=== PATIENT | female | born 1955 | race Caucasian/White ===

== ENCOUNTER 2023-06-17 15:48 | Emergency (ER) | payer OTHER, SELFPAY ==
[2023-06-17 15:58] VITALS: BP 122/81
[2023-06-17 16:13] LABS: % Basophils 0.9 % (0-2); % Eosinophils 2.4 % (0-6); % Immature Granulocytes 0.4 % (0-0.5); % Lymphocytes 30.8 % (20.5-51.1); % Monocytes 10.2 % (1.7-9.3); % Neutrophils 55.3 % (42.2-75.2); Absolute Basophils 0.1 10^3/uL (0-0.2); Absolute Eosinophils 0.1 10^3/uL (0-0.7); Absolute Lymphocytes 1.7 10^3/uL (1.2-3.4); Absolute Monocytes 0.6 10^3/uL (0.1-0.6); Hematocrit 38.6 % (37.0-47.0); Hemoglobin 13.2 g/dL (12.0-16.0); Mean Corp Hgb Conc. 34.2 g/dL (33.0-37.0); Mean Corpuscular Hgb 31.6 pg (27.0-31.0); Mean Corpuscular Volume 92.3 fL (81.0-99.0); Mean Platelet Volume 9.9 fL (7.4-10.4); Nucleated Red Blood Cells % 0 %; Platelet Count 223 10^3/uL (130-400); Red Blood Cell Count 4.18 10^6/uL (4.20-5.40); Red Cell Dist. Width 13.1 % (11.5-14.5); White Blood Cell Count 5.5 10^3/uL (4.8-10.8)
[2023-06-17 16:28] LABS: ALT (SGPT) 33 U/L (0-35); AST (SGOT) 38 U/L (14-36); Albumin 4.5 g/dl (3.5-5.0); Alkaline Phosphatase 61 U/L (38-126); Blood Urea Nitrogen 28 mg/dl (7-17); Calcium 9.7 mg/dl (8.4-10.2); Carbon Dioxide 27 mmol/L (22-30); Chloride 100 mmol/L (98-107); Glucose 97 mg/dl (70-99); Potassium 4.2 mmol/L (3.5-5.1); Sodium 136 mmol/L (135-145); Total Bilirubin 0.5 mg/dl (0.2-1.3); Total Protein 7.2 g/dl (6.3-8.2); eGFR > 60.00
[2023-06-17 17:07] LABS: NT-proBNP 56.1 pg/ml
--- NOTE | 2023-06-17 18:51 | ED.GENMED ---
History of Present Illness
General
Chief Complaint: Musculo-Skeletal Complaint
Source: patient
Time Seen by Provider: 06/17/23 17:35
Travel History
Have you had any contact with someone who has COVID-19?: No
Do you have any symptoms of coronavirus? Fever > 100 degrees, chills, cough, shortness of breath, sore throat, loss of taste or smell, muscle aches, or headache?: No
History of Present Illness
History of Present Illness:
68-year-old female with past medical history of migraines, anxiety and depression presenting to the emergency department for evaluation of right leg pain described to be a burning sensation, stiffness and swelling that has been ongoing for around 1
months, over the last week symptoms have been worsening. No new symptoms today however due to the continuation of the symptoms patient decided to come to the ER to be further evaluated. She did make an appointment with an orthopedist but this is
not until this coming Wednesday. Patient denies any falls or trauma to the affected area. She does note previous surgery to the affected right knee. She denies any fevers, chills, rigors, chest pain, shortness of breath, cough or any other
concerns.
Past History
Past History
ED Past Medical History: Psychiatric and Other (Migraines)
ED Past Surgical History: Orthopedic and Other (R knee reconstruction, bladder lift)
Social History
Tobacco: Non-smoker
Alcohol: None
Drug: None
Personal:
Living: with family
Family History
Family History: Other (non contributory)
Review of Systems
Review of Systems
All Other Systems: ROS reviewed and negative except as documented in HPI and ROS
Phy Exam
Physical Exam
Physical Exam:
GENERAL: Alert , in no apparent distress
EYE: conjunctiva clear
Head: Normocephalic atraumatic
NECK: Supple,
ENT: mmm.
LUNGS: no acute respiratory distress
NEUROLOGICAL: Alert and oriented
SKIN: Warm and dry, skin intact.
MUSCULOSKELETAL: Right leg from the knee distal is mildly more edematous compared to the left. It is also slightly dusky in appearance and there are varicose veins and spider veins throughout. Patient has an easily palpable pedal and tibial pulse
bilateral. Cap refills less than 2 seconds and sensation is grossly intact to light touch. Patient does have some tenderness over the anterior patella but no crepitus
PSYCH: Normal and appropriate interaction.
Scores
Heart Failure Risk
Heart Failure Risk Score: Not Applicable
Heart Score for Chest Pain Patients
STEMI patient?: Not applicable
Withdrawal Assessment of Alcohol
Withdrawal Assessment Completed?: Not applicable
Course
Orders/Labs/Results
Orders:
Orders
06/17/23 16:06
BNP [NT-proBNP] Urgent
CBC/With Diff [Complete Blood Count/With Diff] Urgent
CMP [Comprehensive Metabolic Panel] Urgent
06/17/23 17:41
US Periph Venous LOWER Ext RT Urgent
Comment:
Reason For Exam: pain,swelling
06/17/23 18:05
CR Knee- Right 4 Or More View* Urgent
Comment:
Reason For Exam: edema, pain
Abnormal Lab Results
06/17/23
16:06
RBC 4.18 L 10^6/uL
(4.20-5.40)
MCH 31.6 H pg
(27.0-31.0)
Monocytes % 10.2 H %
(1.7-9.3)
BUN 28 H mg/dl
(7-17)
AST 38 H U/L
(14-36)
06/17/23 16:06
06/17/23 16:06
Vital Signs
Initial and Last Documented VS:
Initial Vital Signs
Temp Pulse Resp BP Pulse Ox
98.1 F 68 15 122/81 99
06/17/23 15:58 06/17/23 15:58 06/17/23 15:58 06/17/23 15:58 06/17/23 15:58
Last Documented Vital Signs
Temp Pulse Resp BP Pulse Ox
98.1 F 68 15 122/81 99
06/17/23 15:58 06/17/23 15:58 06/17/23 15:58 06/17/23 15:58 06/17/23 15:58
MDM/Problems Addressed
Differential Diagnosis Includes:
Arthritic changes, DVT, no concern for arterial occlusion given duration of symptoms combined with lack of physical exam findings and intact pulses
MDM/Problems Addressed:
68-year-old female presenting the emergency department for 1 month of right lower extremity swelling, right knee pain and stiffness. She has an appointment scheduled with orthopedics next week but due to the continuation of symptoms decided to come
to the ER today. There is observable edema to the right lower extremity on exam and the skin does appear little bit more dusky. I do suspect there is a component of peripheral vascular disease. Will obtain lab work as well as an ultrasound of the
right lower extremity and an x-ray of the right knee.
*Radiology
Radiology exam reviewed: preliminary read by ED provider (Degenerative changes) and radiology read reviewed
*Pulse Oximetry
Patient hypoxic: no
*Critical Care Note
Total Time (30-74mins, 75-104mins- exclusive of procedures): Not Applicable
Patient Management
Escalation/DeEscalation of care consider admission/obs:
Patient's ultrasound is negative for DVT. Her knee x-ray did show some mild degenerative changes. She will follow-up with her orthopedist as scheduled as well as her primary care provider. Aware of return precautions but otherwise stable for
discharge home.
ED Attending Note
-
Portions of this chart may have been created with voice recognition software.� Occasional wrong word or��sound alike� substitutions may have occurred due to the inherent limitations of voice recognition software.
Discharge Plan
Departure
Patient Disposition: Home (Routine Discharge)
Date of Disposition: 06/17/23
Time of Disposition: 19:13
Patient with high blood pressure during this ER visit?: No
Discharge Problem:
Knee pain, right, Edema of right lower leg
Instructions: Swelling
Prescriptions:
No Action
bupropion HCl [Wellbutrin SR] 150 MG tablet sustained-release 12 hr
150 mg PO DAILY
multivitamin 1 EACH tablet
1 ea PO DAILY
Referrals:
Mac Wells MD [Family Provider] -
Interventions
Interventions:
*Risk Screen - Suicide Last Done: 06/17/23 15:58
*General Assessment Last Done: 06/17/23 15:58
*Neglect/Abuse Screening Last Done: 06/17/23 15:58
ED- Fall Risk Assessment Last Done: 06/17/23 19:38
*ED COVID-19 Vaccine History Last Done: 06/17/23 15:58
*Nursing Disposition Last Done: 06/17/23 19:38
ED-Musculoskeletal Assessment Last Done: 06/17/23 19:38
Discharge Date and Time
Discharge Date/Time: 06/17/23 19:39
Print Language: MACANESE
== END 2023-06-17 19:39 | disposition home or self-care (01) ==
LOC: EMR 15:48
PROVIDERS: EMERGENCY PHYSICIAN Emergency Medicine; FAMILY PHYSICIAN Internal Medicine
DX: M25.561 Pain in right knee (principal); R60.0 Localized edema; F32.A Depression, unspecified; F41.9 Anxiety disorder, unspecified
CPT/HCPCS: 99285; 73564; 80053; 83880; 85025; 93971

== ENCOUNTER 2023-07-25 20:27 | Emergency (ER) | payer OTHER, SELFPAY ==
[2023-07-25 20:27] VITALS: BMI 28.3
[2023-07-25 20:29] VITALS: BP 142/98
--- NOTE | 2023-07-25 21:16 | ED.GENMED ---
History of Present Illness
General
Chief Complaint: Dizziness
Source: patient and spouse
Exam Limitations: none
Time Seen by Provider: 07/25/23 20:41
Nursing documentation reviewed up to this point in time: agreed with
Travel History
Have you had any contact with someone who has COVID-19?: No
Do you have any symptoms of coronavirus? Fever > 100 degrees, chills, cough, shortness of breath, sore throat, loss of taste or smell, muscle aches, or headache?: No
History of Present Illness
History of Present Illness:
68-year-old female presents emergency room complaining of vertigo with a headache on the top of her head, nausea and vomiting. This is similar to her previous episode of vertigo she had, and was seen in this hospital.
Past History
Past History
ED Past Medical History: Psychiatric, Other (Migraines) and Other (vertigo)
ED Past Surgical History: Orthopedic and Other (R knee reconstruction, bladder lift)
Social History
Tobacco: Non-smoker
Alcohol: None
Drug: None
Personal:
Living: with family
Family History
Family History: Other (non contributory)
Review of Systems
Review of Systems
Allergies reviewed?: Yes
All Other Systems: Not applicable
Constitutional: Reports no symptoms
EENT: Reports no symptoms
Respiratory: Reports no symptoms
Cardiac: Reports no symptoms
ABD/GI: Reports nausea and vomiting
: Reports no symptoms
Musculoskeletal: Reports no symptoms
Skin: Reports no symptoms
Neurological: Reports dizzy
Endocrine: Reports no symptoms
Hematologic/Lymphatic: Reports no symptoms
Psychiatric: Reports no symptoms
Phy Exam
Physical Exam
Physical Exam:
Physical Exam
General: no apparent distress, not acutely ill
Neck: supple. no meningeal signs. normal posterior pharynx
Heart: s1/s2 regular rate and rhythm, no murmur. equal radial
pulses.
HEENT: Pupils equal round reactive to light, EOMI, horizontal nystagmus
Lungs: no acute respiratory distress. clear bilaterally
Abdomen: normal bowel sounds. not tender. no CVAT
Neuro: alert and oriented. no focal neurological deficits cranial nerves II through XII intact
Skin: no rash
Psychiatric: well kept. interactive and cooperative
Extremities: no edema. no calf tenderness. negative homans. good distal pulses
Course
Orders/Labs/Results
Orders:
Orders
07/25/23 21:12
Electrocardiogram (*1) Stat
Reason for Study: Vertigo / Dizzy
EKG- Treatment ONCE
IV Insert/Care/Rem.- Treatment PRN
Diphenhydramine [Benadryl] 25 mg IV NOW STA
Metoclopramide [Reglan] 10 mg IV NOW STA
07/25/23 21:15
Electrocardiogram (*1) Urgent
Reason for Study: Vertigo / Dizzy
07/25/23 21:32
Complete Blood Count/With Diff Urgent
Comprehensive Metabolic Panel Urgent
Abnormal Lab Results
07/25/23
21:32
MCH 31.5 H pg
(27.0-31.0)
07/25/23 21:32
07/25/23 21:32
Vital Signs
Initial and Last Documented VS:
Initial Vital Signs
Pulse Resp BP Pulse Ox
82 24 142/98 97
07/25/23 20:29 07/25/23 20:29 07/25/23 20:29 07/25/23 20:29
Last Documented Vital Signs
Pulse Resp BP Pulse Ox
82 24 142/98 97
07/25/23 20:29 07/25/23 20:29 07/25/23 20:29 07/25/23 20:29
MDM/Problems Addressed
Differential Diagnosis Includes:
CVA, migraine, vertigo
MDM/Problems Addressed:
68-year-old female with migraine and vertigo. Improved after IV Reglan and Benadryl. Stable for discharge.
Chronic conditions affecting care: Other (Migraine, vertigo)
Acute Exacerbation and/or Progression of Chronic Illness: Other (Migraine, vertigo)
*Pulse Oximetry
Patient hypoxic: no
*EKG
Interpreted by ED Provider?: Yes
EKG Intrepretation Date: 07/25/23
EKG Intrepretation Time: 22:08
Interpretation: abnormal
Comparison EKG: no changes
Heart Rate: 55
Rate: bradycardiac
Rhythm: sinus
[place]: normal axis
Interval: normal interval
QRS Pattern: normal QRS
Ischemia: no ischemia
*Type Soldering Machine Tender Interpretation
Rate: bradycardiac
Interpretation: normal
Heart Rate: 55
Rhythm: sinus
*Critical Care Note
Total Time (30-74mins, 75-104mins- exclusive of procedures): Not Applicable
Patient Management
Social determinants of health affecting care: Living situation
Escalation/DeEscalation of care consider admission/obs:
admit not indicated
ED Attending Note
-
Portions of this chart may have been created with voice recognition software.� Occasional wrong word or��sound alike� substitutions may have occurred due to the inherent limitations of voice recognition software.
Discharge Plan
Departure
Patient Disposition: Home (Routine Discharge)
Date of Disposition: 07/25/23
Time of Disposition: 23:57
Patient with high blood pressure during this ER visit?: Yes
Condition: Good
Discharge Problem:
Vertigo, Migraine
Instructions: Vertigo (a Type of Dizziness) (DC)
Prescriptions:
No Action
bupropion HCl [Wellbutrin SR] 150 MG tablet sustained-release 12 hr
150 mg PO DAILY
multivitamin 1 EACH tablet
1 ea PO DAILY
Referrals:
Mac Wells MD [Family Provider] - Call in 1-3 days for appt
Interventions
Interventions:
*Risk Screen - Suicide Last Done: 07/25/23 20:29
*Neglect/Abuse Screening Last Done: 07/25/23 20:29
ED- Fall Risk Assessment Last Done: 07/25/23 21:57
JR-Bdxcsh-Mglymgqqkt Assessment Last Done: 07/25/23 21:59
ED- Cardiac Assessment Last Done: 07/25/23 21:57
ED-EENT Assessment Last Done: 07/25/23 21:57
ED- Neurological Assessment Last Done: 07/25/23 21:57
ED Swallowing Screen Last Done: 07/25/23 22:46
Discharge Date and Time
Print Language: MALDIVIAN
[2023-07-25] MEDS: REGLAN 10 MG IV (21:26)
[2023-07-25] MEDS: BENADRYL 25 MG IV (21:26)
[2023-07-25 21:40] LABS: % Basophils 0.8 % (0-2); % Eosinophils 2.1 % (0-6); % Immature Granulocytes 0.2 % (0-0.5); % Lymphocytes 25.8 % (20.5-51.1); % Monocytes 8.4 % (1.7-9.3); % Neutrophils 62.7 % (42.2-75.2); Absolute Eosinophils 0.1 10^3/uL (0-0.7); Absolute Lymphocytes 1.4 10^3/uL (1.2-3.4); Absolute Monocytes 0.4 10^3/uL (0.1-0.6); Absolute Neutrophils 3.3 10^3/uL (1.4-6.5); Hematocrit 37.3 % (37.0-47.0); Hemoglobin 13.4 g/dL (12.0-16.0); Mean Corp Hgb Conc. 35.9 g/dL (33.0-37.0); Mean Corpuscular Hgb 31.5 pg (27.0-31.0); Mean Corpuscular Volume 87.6 fL (81.0-99.0); Nucleated Red Blood Cells % 0 %; Platelet Count 228 10^3/uL (130-400); Red Blood Cell Count 4.26 10^6/uL (4.20-5.40); Red Cell Dist. Width 12.8 % (11.5-14.5); White Blood Cell Count 5.2 10^3/uL (4.8-10.8)
[2023-07-25 21:55] LABS: ALT (SGPT) 17 U/L (0-35); AST (SGOT) 24 U/L (14-36); Albumin 3.9 g/dl (3.5-5.0); Alkaline Phosphatase 69 U/L (38-126); Blood Urea Nitrogen 17 mg/dl (7-17); Calcium 9.6 mg/dl (8.4-10.2); Carbon Dioxide 25 mmol/L (22-30); Chloride 107 mmol/L (98-107); Glucose 98 mg/dl (70-99); Potassium 3.7 mmol/L (3.5-5.1); Sodium 140 mmol/L (135-145); Total Bilirubin 0.5 mg/dl (0.2-1.3); Total Protein 6.3 g/dl (6.3-8.2); eGFR > 60.00
[2023-07-26 00:24] VITALS: BP 137/71
== END 2023-07-26 00:06 | disposition home or self-care (01) ==
LOC: EMR 20:27
PROVIDERS: EMERGENCY PHYSICIAN Emergency Medicine; FAMILY PHYSICIAN Internal Medicine
DX: G43.909 Migraine, unspecified, not intractable, without status migrainosus (principal); R42 Dizziness and giddiness; R03.0 Elevated blood-pressure reading, without diagnosis of hypertension; F41.9 Anxiety disorder, unspecified; F32.A Depression, unspecified
CPT/HCPCS: 99284; 96374; 96375; 80053; 85025; 93005

== ENCOUNTER → 2023-08-12 06:41 | Outpatient (REF) | payer OTHER, SELFPAY | LOC: HWWDC 06:41 | PROVIDERS: ATTENDING PHYSICIAN Obstetrics & Gynecology Gynecology; FAMILY PHYSICIAN Internal Medicine | DX: Z12.31 Encounter for screening mammogram for malignant neoplasm of breast (principal) | CPT/HCPCS: 77063; 77067 ==

== ENCOUNTER 2024-01-23 08:32 | Emergency (ER) | payer OTHER, SELFPAY ==
[2024-01-23 08:41] VITALS: BP 103/65
[2024-01-23 09:33] VITALS: BMI 28.2
--- NOTE | 2024-01-23 10:12 | ED.GENMED ---
History of Present Illness
General
Chief Complaint: Urinary Symptoms
Source: patient
Exam Limitations: none
Time Seen by Provider: 01/23/24 09:03
Nursing documentation reviewed up to this point in time: agreed with except (denies any bleeding from vagina, states the blood is from urethra)
History of Present Illness
History of Present Illness:
68 yo female with hx anxiety/depression, bladder lift, presents for painful urination, urine with small blood clots.
Last 8 p.m. had difficulty urinating due to pain.
1:30 a.m. similar episode
3:30 a.m. urinated w pain and noted small blood clots
Denies f/c/d/c. Denies abdominal pain
Past History
Past History
ED Past Medical History: Psychiatric, Other (Migraines) and Other (vertigo)
ED Past Surgical History: Orthopedic and Other (R knee reconstruction, bladder lift)
Social History
Tobacco: Non-smoker
Alcohol: None
Drug: None
Personal:
Living: with family
Family History
Family History: Other (non contributory)
Review of Systems
Review of Systems
Allergies reviewed?: Yes
All Other Systems: ROS reviewed and negative except as documented in HPI and ROS
Constitutional: Denies fever or chills
Respiratory: Denies trouble breathing
Cardiac: Denies chest pain
ABD/GI: Denies abdominal pain, nausea, vomiting, diarrhea, constipated or anorexia
: Reports dysuria, difficulty voiding and bleeding; Denies flank pain
Musculoskeletal: Reports no symptoms
Skin: Reports no symptoms
Neurological: Reports no symptoms
Phy Exam
Physical Exam
Physical Exam:
GENERAL: No acute distress. A&Ox3.
CONSTITUTIONAL: Afebrile.
EYES: clear, conjunctivae normal
ENMT: moist mucus membranes, Pharynx nl
RESPIRATORY: Regular respirations, nonlabored, lungs clear.
CARDIOVASCULAR: Regular rate and rhythm, no murmurs, no rubs.
GI: Soft, nontender, normal BS
MUSCULOSKELETAL: Moves with ease. Well perfused.
SKIN: Warm, dry, pink
PSYCH: Normal mood and affect. Well kept, interactive and appropriate
NEUROLOGIC: Awake, alert and oriented. No focal neurological deficits
Course
Orders/Labs/Results
Orders:
Orders
01/23/24 09:45
Urinalysis Reflex To Culture Urgent
Date Specimen was Collected: 01/23/24
Time Specimen was Collected: 08:53
Urine Microscopic Reflex Cult Urgent
Urine Culture Urgent
GREGORY Source: U
Specimen Description:
Date Specimen was Collected: 01/23/24
Time Specimen was Collected: 08:53
01/23/24 10:36
Basic Metabolic Panel Urgent
Complete Blood Count/With Diff Urgent
01/23/24 11:16
Phenazopyridine HCl [Pyridium] 100 mg PO NOW STA
Abnormal Lab Results
01/23/24 01/23/24
09:45 10:36
RBC 3.90 L 10^6/uL
(4.20-5.40)
Hct 35.8 L %
(37.0-47.0)
Absolute Monos (auto) 0.7 H 10^3/uL
(0.1-0.6)
Lymphocytes % 16.3 L %
(20.5-51.1)
Monocytes % 9.9 H %
(1.7-9.3)
Carbon Dioxide 31 H mmol/L
(22-30)
BUN 31 H mg/dl
(7-17)
Glucose 103 H mg/dl
(70-99)
Ur Occult Blood Reflex 4+ A
(Negative)
Urine Nitrite (Reflex) Positive A
(Negative)
Urine Urobilinogen 2+ A
(Neg - 1+)
Leukocyte Esterase Rfl 2+ A
(Negative)
Urine RBC >100 A /HPF
(0-2)
Urine WBC (Reflex) 21-25 A /HPF
(0-5)
Urine Bacteria (Reflex) Moderate A
(Negative)
Urine Albumin (Reflex) 2+ A
(Neg - Trace)
01/23/24 10:36
01/23/24 10:36
Vital Signs
Initial and Last Documented VS:
Initial Vital Signs
Temp Pulse Resp BP Pulse Ox
97.7 F 71 22 103/65 98
01/23/24 08:41 01/23/24 08:41 01/23/24 08:41 01/23/24 08:41 01/23/24 08:41
Last Documented Vital Signs
Temp Pulse Resp BP Pulse Ox
97.7 F 55 16 108/67 98
01/23/24 08:41 01/23/24 11:47 01/23/24 11:47 01/23/24 11:47 01/23/24 11:47
MDM/Problems Addressed
Differential Diagnosis Includes:
UTI, hemorrhagic cystitis
MDM/Problems Addressed:
68 yo female with hx anxiety/depression, bladder lift, presents for painful urination, urine with small blood clots.
Last 8 p.m. had difficulty urinating due to pain.
1:30 a.m. similar episode
3:30 a.m. urinated w pain and noted small blood clots
Denies f/c/d/c. Denies abdominal pain
11:10 a.m.
CBC: no clinically significant abnormality
CMP: BUN 31 otherwise normal
U/A: 4+ occult blood, nitrite and leukocyte positive, greater than 100 RBCs, 21-25 WBCs, moderate bacteria, 2+ albumin
History and exam is consistent with hemorrhagic cystitis
Rx for Pyridium and Keflex sent to her pharmacy
*Critical Care Note
Total Time (30-74mins, 75-104mins- exclusive of procedures): Not Applicable
ED Attending Note
-
Portions of this chart may have been created with voice recognition software.� Occasional wrong word or��sound alike� substitutions may have occurred due to the inherent limitations of voice recognition software.
Discharge Plan
Departure
Patient Disposition: Home (Routine Discharge)
Date of Disposition: 01/23/24
Time of Disposition: 11:19
Patient with high blood pressure during this ER visit?: No
Condition: Good
Discharge Problem:
Acute hemorrhagic cystitis
Instructions: Urinary Tract Infection, Adult (DC)
Prescriptions:
New
phenazopyridine [Pyridium] 100 mg tablet
100 mg PO TID PRN (Reason: Pain with urination) Qty: 7 0RF
cephalexin 500 mg capsule
500 mg PO BID 7 Days Qty: 14 0RF
No Action
bupropion HCl [Wellbutrin SR] 150 MG tablet sustained-release 12 hr
150 mg PO DAILY
multivitamin 1 EACH tablet
1 ea PO DAILY
Referrals:
Marysol Padilla, DO [Active] - As needed
Mac Wells MD [Family Provider] - As needed
Activity Restrictions/Additional Instructions:
As we discussed, I sent prescriptions to your pharmacy for Keflex antibiotic and Pyridium for pain.
Drink plenty of fluids.
See your doctor in 7-10 days if not 100% improved.
I provided you with information for Marysol Padilla, Urologist. Make appointment to see her if you wish.
Interventions
Interventions:
*Risk Screen - Suicide Last Done: 01/23/24 08:48
*General Assessment Last Done: 01/23/24 09:34
*Neglect/Abuse Screening Last Done: 01/23/24 08:48
ED- Fall Risk Assessment Last Done: 01/23/24 09:34
*ED COVID-19 Vaccine History Last Done: 01/23/24 09:34
*Nursing Disposition Last Done: 01/23/24 11:51
ED-Female Genitourinary Assessment Last Done: 01/23/24 09:34
Discharge Date and Time
Discharge Date/Time: 01/23/24 11:52
Print Language: [email or web address]
[2024-01-23 10:15] LABS: Urine Albumin 2+ (Neg - Trace); Urine Bilirubin Negative (Negative); Urine Character Very Cloudy (Clear); Urine Color Amber; Urine Glucose Negative (Negative); Urine Ketone Negative (Negative); Urine Leukocyte 2+ (Negative); Urine Nitrite Positive (Negative); Urine Occult Blood 4+ (Negative); Urine Urobilinogen 2+ (Neg - 1+); Urine pH 6.5 (5.0-9.0)
[2024-01-23 10:41] LABS: Urine Bacteria Moderate (Negative); Urine Red Blood Cell >100 /HPF (0-2); Urine White Cell 21-25 /HPF (0-5)
[2024-01-23 10:51] LABS: % Basophils 0.4 % (0-2); % Eosinophils 1.8 % (0-6); % Immature Granulocytes 0.3 % (0-0.5); % Lymphocytes 16.3 % (20.5-51.1); % Monocytes 9.9 % (1.7-9.3); % Neutrophils 71.3 % (42.2-75.2); Absolute Eosinophils 0.1 10^3/uL (0-0.7); Absolute Lymphocytes 1.2 10^3/uL (1.2-3.4); Absolute Monocytes 0.7 10^3/uL (0.1-0.6); Hematocrit 35.8 % (37.0-47.0); Hemoglobin 12.1 g/dL (12.0-16.0); Mean Corp Hgb Conc. 33.8 g/dL (33.0-37.0); Mean Corpuscular Volume 91.8 fL (81.0-99.0); Mean Platelet Volume 10.4 fL (7.4-10.4); Nucleated Red Blood Cells % 0 %; Platelet Count 186 10^3/uL (130-400); Red Cell Dist. Width 12.6 % (11.5-14.5); White Blood Cell Count 7.1 10^3/uL (4.8-10.8)
[2024-01-23 11:00] LABS: Blood Urea Nitrogen 31 mg/dl (7-17); Calcium 9.3 mg/dl (8.4-10.2); Carbon Dioxide 31 mmol/L (22-30); Chloride 105 mmol/L (98-107); Estimated Creatinine Clearance 68 ml/min; Glucose 103 mg/dl (70-99); Potassium 4.7 mmol/L (3.5-5.1); Sodium 142 mmol/L (135-145); eGFR > 60.00
[2024-01-23] MEDS: Pyridium 100 MG PO (11:43)
[2024-01-23 11:47] VITALS: BP 108/67
== END 2024-01-23 11:52 | disposition home or self-care (01) ==
LOC: EMR 08:32
PROVIDERS: EMERGENCY PHYSICIAN Emergency Medicine; FAMILY PHYSICIAN Internal Medicine
DX: N30.01 Acute cystitis with hematuria (principal)
CPT/HCPCS: 99283; 80048; 81003; 81015; 85025; 87077; 87086; 87186

== ENCOUNTER → 2024-09-08 08:40 | Outpatient (REF) | payer OTHER, SELFPAY | LOC: RAD 08:40 | PROVIDERS: ATTENDING PHYSICIAN Physician Assistant | DX: R06.02 Shortness of breath (principal) | CPT/HCPCS: 71046 ==

== ENCOUNTER → 2024-09-20 08:26 | Outpatient (REF) | payer OTHER, SELFPAY | LOC: HWWDC 08:26 | PROVIDERS: ATTENDING PHYSICIAN Obstetrics & Gynecology Gynecology; FAMILY PHYSICIAN Physician Assistant | DX: Z12.31 Encounter for screening mammogram for malignant neoplasm of breast (principal) | CPT/HCPCS: 77063; 77067 ==

== ENCOUNTER → 2024-10-11 06:54 | Outpatient (REF) | payer OTHER, SELFPAY | LOC: RCS 06:54 | PROVIDERS: ATTENDING PHYSICIAN Internal Medicine Interventional Cardiology; FAMILY PHYSICIAN Physician Assistant | DX: R06.02 Shortness of breath (principal); R07.89 Other chest pain; E78.2 Mixed hyperlipidemia; I10 Essential (primary) hypertension; I48.0 Paroxysmal atrial fibrillation | CPT/HCPCS: 93306 ==

== ENCOUNTER → 2024-10-18 06:41 | Outpatient (REF) | payer OTHER, SELFPAY | LOC: RCS 06:41 | PROVIDERS: ATTENDING PHYSICIAN Internal Medicine Interventional Cardiology; FAMILY PHYSICIAN Physician Assistant | DX: R06.02 Shortness of breath (principal); R07.89 Other chest pain; E78.2 Mixed hyperlipidemia; I10 Essential (primary) hypertension; I48.0 Paroxysmal atrial fibrillation | CPT/HCPCS: 78452; 93017; A9500 ==

== ENCOUNTER → 2025-03-01 09:19 | Outpatient (REF) | payer OTHER, SELFPAY | LOC: RAD 09:19 | PROVIDERS: ATTENDING PHYSICIAN Internal Medicine Interventional Cardiology; FAMILY PHYSICIAN Physician Assistant | DX: I48.0 Paroxysmal atrial fibrillation (principal); R07.89 Other chest pain; R94.31 Abnormal electrocardiogram [ECG] [EKG] | CPT/HCPCS: 75574; Q9967 ==